=== PATIENT | female | born 1965 | race American Indian/Alaskan Native ===

== ENCOUNTER 2017-06-17 19:50 | Emergency (ER) | payer OTHER ==
[2017-06-17 20:29] LABS: Basophils % (Auto) 0.3 % (0.0-1.8); Eosinophils % (Auto) 0.2 % (0.0-4.3); Hematocrit 40.9 % (30.3-42.9); Hemoglobin 13.7 gm/dl (10.1-14.3); Lymphocytes # (Auto) 2.3 K/mm3 (1.2-5.4); Lymphocytes % (Auto) 35.4 % (13.4-35.0); Mean Corpuscular HGB Conc 33 % (30-34); Mean Corpuscular Hemoglobin 31 pg (28-32); Mean Corpuscular Volume 92 fl (79-97); Monocytes # (Auto) 0.3 K/mm3 (0.0-0.8); Monocytes % (Auto) 4.6 % (0.0-7.3); Platelet Count 290 K/mm3 (140-440); Red Blood Count 4.44 M/mm3 (3.65-5.03)
[2017-06-17 20:51] LABS: Alanine Aminotransferase 8 units/L (7-56); Albumin 4.6 g/dL (3.9-5); BUN/Creatinine Ratio 18; Blood Urea Nitrogen 9 mg/dL (7-17); Calcium 9.4 mg/dL (8.4-10.2); Hemolysis Index 4; Lipase 36 units/L (13-60)
[2017-06-17] MEDS ORDERED: CATAPRES PO ONE (21:46)
--- NOTE | 2017-06-17 21:46 | Emergency Department Report ---
ED Abdominal Pain HPI - General Chief Complaint: Abdominal Pain Stated Complaint: RIGHT FLANK PAIN Time Seen by Provider: 06/17/17 21:18 Source: patient Mode of arrival: Stretcher Limitations: No Limitations - History of Present Illness Initial Comments: Patient is a 51-year-old female poor historian here states right lower quadrant pain for a month she has had a hysterectomy and a cholecystectomy appendectomy denies any dysuria no vaginal bleeding or vaginal discharge, denies IV drug use but has been taking frequent oral opiates and is trying to stop last dose yesterday thinks she might be having withdrawal, hearing voices and wants detox , no si no hi -: unknown Location: RLQ Radiation: none Severity: mild, moderate Quality: cramping, fullness Associated Symptoms: denies: diarrhea, chills, constipation, dysuria, hematemesis, hematochezia, melena, hematuria, anorexia, syncope - Related Data Home Medications Medication Instructions Recorded Confirmed Last Taken HYDROcodone/ACETAMINOPHEN 06/17/17 Unknown oxyCODONE 06/17/17 Unknown Allergies Allergy/AdvReac Type Severity Reaction Status Date / Time morphine Allergy Hives Verified 06/17/17 20:05 ondansetron AdvReac Vomiting Verified 06/17/17 20:06 [From Zofran (as hydrochloride)] ED Review of Systems ROS: Stated complaint: RIGHT FLANK PAIN Other details as noted in HPI Comment: All other systems reviewed and negative Constitutional: denies: diaphoresis, fever, malaise Respiratory: denies: shortness of breath, SOB with exertion, SOB at rest, stridor Cardiovascular: denies: chest pain, palpitations, dyspnea on exertion, orthopnea , edema, syncope, paroxysmal nocturnal dyspnea Gastrointestinal: abdominal pain, nausea. denies: diarrhea, constipation, hematemesis, melena, hematochezia Genitourinary: denies: frequency, hematuria, discharge, abnormal menses Musculoskeletal: denies: joint swelling, arthralgia, myalgia Neurological: denies: headache, weakness, numbness, paresthesias, confusion, abnormal gait, vertigo Psychiatric: anxiety, depression, auditory hallucinations Hematological/Lymphatic: denies: easy bleeding, easy bruising, swollen glands ED Past Medical Hx - Past Medical History Previous Medical History?: No Additional medical history: Opiates Dependence, - Surgical History Hx Cholecystectomy: Yes Hx Appendectomy: Yes Additional Surgical History: Hysterectomy, Hernia repair X2, - Social History Smoking Status: Current Every Day Smoker Substance Use Type: None - Medications Home Medications: Home Medications Medication Instructions Recorded Confirmed Last Taken Type HYDROcodone/ACETAMINOPHEN 06/17/17 Unknown History oxyCODONE 06/17/17 Unknown History ED Physical Exam - General Limitations: No Limitations General appearance: alert, anxious, other (tearful and sad affect and admits to auditory hallucinations) - Head Head exam: Present: atraumatic, normocephalic - ENT ENT exam: Present: normal exam, normal orophraynx, mucous membranes dry - Neck Neck exam: Present: normal inspection. Absent: tenderness, meningismus - Respiratory Respiratory exam: Present: normal lung sounds bilaterally. Absent: respiratory distress, wheezes, rales, rhonchi, stridor, accessory muscle use - Cardiovascular Cardiovascular Exam: Present: regular rate, normal rhythm - GI/Abdominal GI/Abdominal exam: Present: soft. Absent: distended, tenderness, guarding, rebound, rigid, mass, bruit, pulsatile mass - Extremities Exam Extremities exam: Present: normal inspection, normal capillary refill. Absent: pedal edema, joint swelling, calf tenderness - Back Exam Back exam: Present: normal inspection. Absent: CVA tenderness (L), muscle spasm , paraspinal tenderness, vertebral tenderness - Neurological Exam Neurological exam: Present: alert, oriented X3, CN II-XII intact. Absent: motor sensory deficit - Psychiatric Psychiatric exam: Present: depressed, anxious ED Course Vital Signs 06/17/17 06/17/17 06/17/17 19:54 22:00 22:16 Temperature 98.2 F Pulse Rate 104 H 72 Respiratory 18 20 18 Rate Blood Pressure 142/103 O2 Sat by Pulse 100 100 Oximetry 06/17/17 06/17/17 06/17/17 22:27 22:31 22:46 Temperature Pulse Rate 104 H 76 75 Respiratory 11 L Rate Blood Pressure O2 Sat by Pulse 99 Oximetry 06/17/17 06/17/17 06/17/17 23:00 23:16 23:24 Temperature Pulse Rate 73 62 66 Respiratory 20 19 19 Rate Blood Pressure O2 Sat by Pulse 98 99 100 Oximetry 06/17/17 06/17/17 06/17/17 23:27 23:30 23:46 Temperature Pulse Rate 63 65 Respiratory 18 20 19 Rate Blood Pressure O2 Sat by Pulse 100 100 100 Oximetry 06/18/17 06/18/17 06/18/17 00:00 00:16 00:30 Temperature Pulse Rate 80 81 65 Respiratory 18 19 18 Rate Blood Pressure 126/84 110/79 O2 Sat by Pulse 100 100 100 Oximetry ED Medical Decision Making - Lab Data Result diagrams: 06/17/17 20:17 06/17/17 20:17 - Radiology Data Radiology results: report reviewed - Medical Decision Making Patient is medically cleared for psych eval with acute psychosis. Laboratory studies were unremarkable CT abdomen was process patient has not had any surgical abdomen at this time. She will need evaluation by menopause for further evaluation of acute psychosis with history of opiate abuse Critical care attestation.: If time is entered above; I have spent that time in minutes in the direct care of this critically ill patient, excluding procedure time. ED Disposition Clinical Impression: Opiate abuse, continuous, Psychosis, Pain, abdominal, nonspecific Disposition: DC/TX-65 PSY HOSP/PSY UNIT Is pt being admited?: No Condition: Stable Instructions: Abdominal Pain (ED) Referrals: LANA BLANCO MD [Primary Care Provider] - 3-5 Days Time of Disposition: 01:00
[2017-06-17 22:22] LABS: Amphetamine Screen,Urine PRESUMPTIVE NEGATIVE; Benzodiazepines Screen,Urine PRESUMPTIVE NEGATIVE; Cannabinoid Screen,Urine PRESUMPTIVE NEGATIVE; Cocaine Screen,Urine PRESUMPTIVE NEGATIVE; Methadone Screen,Urine PRESUMPTIVE NEGATIVE; Opiate Screen,Urine PRESUMPTIVE NEGATIVE
[2017-06-17 22:24] LABS: Bacteria,Urine 4+ /HPF (Negative); Bilirubin,Urine NEG (Negative); Blood,Urine NEG (Negative); Color,Urine Yellow (Yellow); Mucus,Urine 3+ /HPF
--- NOTE | 2017-06-17 23:08 | Cat Scan Report ---
FINAL REPORT EXAM: CT ABDOMEN PELVIS WO CON HISTORY: flank pain TECHNIQUE: Unenhanced stone protocol CT of the abdomen and pelvis at 2.5 millimeter axial increments. Coronal and sagittal reconstruction was also performed. PRIORS: None. FINDINGS: There is no evidence for renal calculi or hydronephrosis. No evidence for ureteral or bladder calculus is seen. No evidence for renal or bladder mass is noted. Otherwise, within the limits of a noncontrast exam, the liver, spleen, pancreas, and adrenal glands are unremarkable. The gallbladder has been surgically removed. No evidence for retroperitoneal or pelvic lymphadenopathy is seen. The bowel loops have normal caliber. No fluid collection, inflammatory change, or free air is seen within the abdomen or pelvis. The appendix is normal. Within the pelvis, the uterus has been surgically removed. Images through the upper abdomen include the lung bases which are expanded and clear. Bony structures show no focal abnormalities. IMPRESSION: 1. No evidence for renal calculi or renal obstruction. 2. Negative CT of the abdomen and pelvis.
[2017-06-18] MEDS ORDERED: ATIVAN IV ONE (01:01)
[2017-06-18] MEDS ORDERED: ATIVAN ONE (01:45)
[2017-06-18] MEDS ORDERED: ATIVAN PO ONE ×2 (01:48→18:19)
[2017-06-18] MEDS ORDERED: REGLAN PO PRN (09:16)
[2017-06-18] MEDS ORDERED: TYLENOL PO ONE (09:17)
[2017-06-18] MEDS ORDERED: XANAX ONE (13:02)
[2017-06-18] MEDS ORDERED: XANAX PO ONE (13:05)
--- NOTE | 2017-06-18 13:36 | Consultation ---
History of Present Illness - Reason for Consult Consult date: 06/18/17 Reason for consult: Mental Health Evaluation Requesting physician: GLADYS GEE - Chief Complaint Chief complaint: "I am tired of my life" - History of Present Psychiatric Illness 51-year-old female poor historian here states right lower quadrant pain for a month she has had a hysterectomy, cholecystectomy, and appendectomy. Psychiatry was consulted to see patient for possible psychosis. Today the patient is calm and cooperative during the assessment. She stated that she feel depressed because she wants to stop taking opiates. Also, she stated not having a job and being able to help her family. She stated being on opiates for the past 20 years , with her last administration 2 days ago. She stated having suicidal thoughts, but denies SI's. She denies AVH's. She stated being sad, helpless, and hopeless about her situation. She stated having erratic sleep with a poor appetite. She denies any manic episodes in the past. She denies recreational drug use and excessive alcohol consumption (etoh). Medications and Allergies Allergies Allergy/AdvReac Type Severity Reaction Status Date / Time morphine Allergy Hives Verified 06/17/17 20:05 ondansetron AdvReac Vomiting Verified 06/17/17 20:06 [From Zofran (as hydrochloride)] Home Medications Medication Instructions Recorded Confirmed Last Taken Type HYDROcodone/ACETAMINOPHEN 06/17/17 Unknown History oxyCODONE 06/17/17 Unknown History Active Meds: Active Medications Metoclopramide HCl (Reglan) 5 mg PO Q8H PRN PRN Reason: Nausea Past psychiatric history - Past Medical History Past Surgical History: cholecystectomy, hysterectomy - past Psychiatric treatment and history psychiatric treatment history: Denies a psy hx. Denies a fam psy. - Social History Social history: lives with family Mental Status Exam - Vital signs Last Vital Signs Temp 98 F 06/18/17 06:49 Pulse 83 06/18/17 10:00 Resp 20 06/18/17 10:00 BP 148/78 06/18/17 10:00 Pulse Ox 98 06/18/17 10:00 - Exam Narrative exam: MSE: Appearance: calm, cooperative Behavior: regular eye contact Speech: regular rate and tone Mood: "depressed" withdrawn Affect: congruent to mood Thought Process: circumstantial Thought Content: denies SI/HI's and AVH's, suicidal thoughts Motor Activity: ambulatory Cognition: A/O x3 Insight: variable Judgment: variable Results Result Diagrams: 06/17/17 20:17 06/17/17 20:17 Abnormal lab results 06/17/17 06/17/17 06/17/17 Range/Units 20:17 20:17 20:17 RDW 13.0 L (13.2-15.2) % Lymph % (Auto) 35.4 H (13.4-35.0) % Potassium 3.4 L (3.6-5.0) mmol/L Creatinine 0.5 L (0.7-1.2) mg/dL Glucose 133 H (65-100) mg/dL Urine pH (5.0-7.0) Salicylates < 0.3 L (2.8-20.0) mg/dL Acetaminophen (10.0-30.0) ug/mL 06/17/17 06/17/17 Range/Units 20:17 22:08 RDW (13.2-15.2) % Lymph % (Auto) (13.4-35.0) % Potassium (3.6-5.0) mmol/L Creatinine (0.7-1.2) mg/dL Glucose (65-100) mg/dL Urine pH 8.0 H (5.0-7.0) Salicylates (2.8-20.0) mg/dL Acetaminophen < 5.0 L (10.0-30.0) ug/mL All other labs normal. Assessment and Plan Assessment and plan: Impression: MDD. R/O Opioid Use DO. Today the patient is calm and cooperative during the assessment. The patient denies SI, but she is sad and withdrawn with suicidal thoughts currently. This patient is not safe to be discharged ( outpatient) at this time. UDS neg for opiates. DDx: R/O Bipolar DO Recommendation/Plan: Continue 1013 and reassess patient in 24 hours to determine proper dispo. Start Remeron 15 mg PO HS for depression. Discussed possible suicidality/medication induced jaswant with patient reference Remeron. Monitor patient for opiate withdrawals.
[2017-06-18] MEDS: REMERON PO SCH (22:02)
[2017-06-19] MEDS ORDERED: ATIVAN PO ONE ×2 (01:53→14:37)
[2017-06-19] MEDS: VISTARIL PO PRN (09:14)
--- NOTE | 2017-06-19 10:58 | Progress Note ---
Subjective - Reason for Consult Consult date: 06/19/17 Reason for consult: Psychiatry Follow-up - Chief Complaint Chief complaint: "Why me" 51-year-old female poor historian here states right lower quadrant pain for a month she has had a hysterectomy, cholecystectomy, and appendectomy. Psychiatry was consulted to see patient for possible psychosis. Today the patient is calm and cooperative during the assessment. She worries about how to help her family when they are in need. She stated being depressed and anxious. She rate both 10/ 10, with 10 being the worse. She would not confirm or deny SI's when asked. She denies HI's and AVH's. She denies any side effects of her medication. Mental Status Exam - Vital signs Last Vital Signs Temp 98.8 F 06/18/17 20:46 Pulse 79 06/18/17 20:46 Resp 20 06/18/17 20:46 BP 112/69 06/18/17 20:46 Pulse Ox 100 06/18/17 20:46 - Exam Narrative exam: MSE: Appearance: calm, cooperative Behavior: regular eye contact Speech: regular rate and tone Mood: "depressed and anxious" Affect: congruent to mood Thought Process: circumstantial Thought Content: denies HI's and AVH's, cannot confirm or deny SI's Motor Activity: ambulatory Cognition: A/O x3 Insight: variable Judgment: variable Assessment and Plan Impression: MDD. R/O Opioid Use DO. Today the patient is calm and cooperative during the assessment. The patient cannot confirm or deny SI's. UDS neg for opiates. DDx: R/O Bipolar DO Recommendation/Plan: Continue 1013 with placement to inpatient psy services. Continue Remeron 15 mg PO HS for depression and start Vistaril 25 mg PO Q6hrs PRN for acute anxiety. Discussed possible suicidality/medication induced jaswant with patient reference Remeron. Monitor patient for opiate withdrawals.
[2017-06-19] MEDS: REMERON PO SCH (23:46)
[2017-06-20] MEDS: VISTARIL PO PRN (08:56)
[2017-06-20] MEDS ORDERED: ATIVAN PO ONE (14:01)
--- NOTE | 2017-06-20 15:07 | Progress Note ---
Subjective - Reason for Consult Consult date: 06/20/17 Reason for consult: Psychiatric Follow-up Evaluation - Chief Complaint Chief complaint: "Anxious" Nikolay is a 51-year-old AA female poor historian who was consulted for psychiatry due to possible psychosis. She has a PMH of hysterectomy, cholecystectomy, and appendectomy. Today patient presents depressed, anxious, and tearful. She reports " I'm ready to get out of here. I need help to come off of opioids." Patient endorses abdominal cramping related to opioid withdrawal. She endorses intermittent passive suicidal ideations with no plan and auditory halluications of "clicking and rattling noise." . Currently she denies HI and VH. Mental Status Exam - Vital signs Last Vital Signs Temp 98.8 F 06/18/17 20:46 Pulse 79 06/18/17 20:46 Resp 20 06/20/17 08:51 BP 112/69 06/18/17 20:46 Pulse Ox 100 06/20/17 08:51 - Exam Narrative exam: MSE: Appearance: hospital gown Attitude/Behavior: regular eye contact Sensorium: clear Orientation: alert and oriented x 3 Speech: regular rate and tone Mood: "depressed and anxious" Affect: congruent to mood Thought Process: circumstantial Thought Content: denies HI's and AVH's, cannot confirm or deny SI's Motor Activity: ambulatory Insight: variable Judgment: variable Assessment and Plan Impression: MDD. R/O Opioid Use DO. Today the patient is cooperative but depressed, anxious , and tearful during the assessment. She endorses intermittent passive thoughts of suicide. She denies HI, A/VH. DDx: R/O Bipolar DO Recommendation/Plan: 1. Continue 1013 with placement to inpatient psy services. 2. Continue Remeron 15 mg PO HS for depression and start Vistaril 25 mg PO Q6hrs PRN for acute anxiety. 3. Discussed possible suicidality/medication induced jaswant with patient reference Remeron. 4. Monitor patient for opiate withdrawals.
[2017-06-20] MEDS: REMERON PO SCH (22:03)
[2017-06-21] MEDS: VISTARIL PO PRN (09:40)
--- NOTE | 2017-06-21 10:25 | Progress Note ---
Subjective - Reason for Consult Consult date: 06/21/17 Reason for consult: Psychiatry Follow-up - Chief Complaint Chief complaint: "I feel better" 51-year-old female poor historian here states right lower quadrant pain for a month she has had a hysterectomy, cholecystectomy, and appendectomy. Psychiatry was consulted to see patient for possible psychosis. Today the patient is calm and cooperative during the assessment. She stated that she feels much better and denies SI's, but rate her depression 5/10, with 10 being the worse. This is the first time the patient was able to confirm not being suicidal. She stated having restless leg symptoms when taking Remeron. She denies being anxious when asked. She denies HI's and AVH's. She stated that her appetite is "better." Mental Status Exam - Vital signs Last Vital Signs Temp 98.5 F 06/21/17 04:14 Pulse 74 06/21/17 04:14 Resp 20 06/21/17 04:14 BP 110/75 06/21/17 04:14 Pulse Ox 99 06/21/17 04:14 - Exam Narrative exam: MSE: Appearance: calm, cooperative Behavior: regular eye contact Speech: regular rate and tone Mood: "better but still sad" withdrawn Affect: congruent to mood Thought Process: linear Thought Content: denies SI/HI's and AVH's Motor Activity: ambulatory Cognition: A/O x3 Insight: variable Judgment: variable Assessment and Plan Impression: MDD. R/O Opioid Use DO. Today the patient is calm and cooperative during the assessment. UDS neg for opiates. She denies acute withdrawals ( opioids). The patient is still sad and withdrawn on assessment. DDx: R/O Bipolar DO Recommendation/Plan: Continue 1013 with placement to inpatient psy services. D/ C Remeron and Start Prozac 20 mg PO daily for depression and continue Vistaril 25 mg PO Q6hrs PRN for acute anxiety. Discussed possible suicidality/medication induced jaswant with patient reference Prozac. Monitor patient for opiate withdrawals.
[2017-06-21] MEDS ORDERED: PROzac PO SCH (11:00)
[2017-06-21 16:09] VITALS: BP 124/81
== END 2017-06-21 16:12 ==
LOC: ED 19:50
DX: F32.9 Major depressive disorder, single episode, unspecified (principal); F11.20 Opioid dependence, uncomplicated; R10.31 Right lower quadrant pain; F17.200 Nicotine dependence, unspecified, uncomplicated; Z90.49 Acquired absence of other specified parts of digestive tract; Z90.710 Acquired absence of both cervix and uterus; Z88.5 Allergy status to narcotic agent; Z88.8 Allergy status to other drugs, medicaments and biological substances; Z79.899 Other long term (current) drug therapy
CPT/HCPCS: 36415; 74176; 80053; 80307; 81001; 83690; 84703; 85025; 99285; G0480; 80320; Q0177